=== PATIENT | male | born 1935 | race Caucasian/White ===

== ENCOUNTER 2018-09-27 20:42 | Emergency (ER) | payer OTHER ==
[~2018-09-27] VITALS: Ht 172.7 cm; Wt 63.6 kg
[2018-09-27 20:46] VITALS: Ht 172.7 cm; Wt 63.6 kg
[2018-09-27] MEDS ORDERED: ONDANSETRON 4 MG INJ IV STA (21:41)
[2018-09-27] MEDS ORDERED: SOD CHLORIDE 0.9% 1,000 ML IV STA (21:41)
--- NOTE | 2018-09-27 21:44 | ERD ---
ER Documentation Chief Complaint Chief Complaint ABDOMINAL PAIN HPI 82-year-old man complains of shaking chills about an hour prior to arrival and tactile fever, he states he has some nausea as well. Chills lasted for about 30 minutes and then resolved, he denies abdominal pain, no chest pain or shortness of breath, no cough, no sore throat, no vomiting or diarrhea, no headache or blurry vision, no complaints of neck pain or stiffness. ROS All systems reviewed and are negative except as per history of present illness. Medications Home Meds Reported Medications Cholecalciferol* (Vitamin D3*) 1,000 Unit Tablet, 1000 UNIT PO DAILY, TAB 09/27/18 Atorvastatin Calcium* (Atorvastatin Calcium*) 20 Mg Tablet, 20 MG PO QHS, #30 TAB 09/27/18 Aspirin Ec (Aspir 81) 81 Mg Tablet.dr, 81 MG PO DAILY, #30 TAB 09/27/18 Trazodone Hcl* (Trazodone Hcl*) 50 Mg Tablet, 50 MG PO QHS, #30 TAB 09/27/18 Albuterol Sulfate* (Ventolin HFA*) 18 Gm Hfa.aer.ad, 2 PUFF INHALATION Q4H, #1 INHALER 09/27/18 Allergies Allergies: Coded Allergies: No Known Allergy (Unverified , 09/27/18) PMhx/Soc History of Surgery: Yes (LUMBAR SPINE ) Anesthesia Reaction: No Hx Neurological Disorder: No Hx Respiratory Disorders: No Hx Cardiac Disorders: Yes (HTN) Hx Psychiatric Problems: No Hx Miscellaneous Medical Probl: No Hx Alcohol Use: Yes (SOCIAL) Hx Substance Use: No Hx Tobacco Use: No Smoking Status: Never smoker FmHx Family History: No diabetes Physical Exam Vitals Vital Signs Date Temp Pulse Resp B/P (MAP) Pulse Ox O2 O2 Flow FiO2 Time Delivery Rate 09/27/18 101 20 125/76 97 Room Air 23:20 (92) 09/27/18 122 20 146/80 96 Room Air 21:25 (102) 09/27/18 99.7 138 21 146/90 95 20:46 (108) Physical Exam GENERAL: Well-developed, well-nourished, well-hydrated, in no apparent distress, looks nontoxic in appearance HEENT: Moist mucous membranes, pink conjunctiva, no cervical spine tenderness or step-off deformities, no goiter, no jaundice or icterus, extraocular movements intact without pain. No submandibular induration, and no pharyngeal erythema NEURO: Alert and oriented 3, cranial nerves II through XII intact bilaterally, pupils equal round reactive to light, no focal deficits or facial asymmetry, sensation intact distally Strength 5/5 in upper and lower extremities bilaterally CARDIAC: Tachycardic and regular, no murmurs rubs or gallops LUNGS: Clear bilaterally no wheezing crackles or stridor ABDOMEN: Soft nontender, no guarding, no rigidity, no rebound, no psoas sign no obturator sign. Normoactive bowel sounds SKIN: Warm and dry to touch, no abrasions, contusions, or hematomas, no lacerations, no ecchymosis, no target lesions, and without ulcers EXTREMITIES: No clubbing cyanosis or edema, calves are bilaterally symmetrical, no Homans sign, no popliteal cord sign. Distal pulses equal and bilateral PSYCH: Normal affect without agitation or irritability Result Diagram: 09/27/18211109/27/182150 Results 24 hrs Laboratory Tests Test 09/27/18 21:12 09/27/18 21:51 09/27/18 22:30 White Blood Count 6.3 10^3/ul Red Blood Count 4.20 10^6/ul Hemoglobin 13.5 g/dl Hematocrit 38.1 % Mean Corpuscular Volume 90.7 fl Mean Corpuscular Hemoglobin 32.1 pg Mean Corpuscular 35.4 g/dl Hemoglobin Concent Red Cell Distribution Width 12.6 % Platelet Count 220 10^3/UL Mean Platelet Volume 10.1 fl Immature Granulocytes % 0.800 % Neutrophils % 93.0 % Lymphocytes % 4.6 % Monocytes % 1.1 % Eosinophils % 0.2 % Basophils % 0.3 % Nucleated Red Blood Cells % 0.0 /100WBC Immature Granulocytes # 0.050 10^3/ul Neutrophils # 5.9 10^3/ul Lymphocytes # 0.3 10^3/ul Monocytes # 0.1 10^3/ul Eosinophils # 0.0 10^3/ul Basophils # 0.0 10^3/ul Nucleated Red Blood Cells # 0.0 10^3/ul Sodium Level 141 mmol/L Potassium Level 4.0 mmol/L Chloride Level 106 mmol/L Carbon Dioxide Level 22 mmol/L Anion Gap 13 Blood Urea Nitrogen 15 mg/dl Creatinine 1.40 mg/dl Est Glomerular Filtrat mL/min Rate mL/min Glucose Level 117 mg/dl Calcium Level 9.2 mg/dl Total Bilirubin 0.8 mg/dl Direct Bilirubin 0.00 mg/dl Indirect Bilirubin 0.8 mg/dl Aspartate Amino 22 IU/L Transf (AST/SGOT) Alanine 21 IU/L Aminotransferase (ALT/SGPT) Alkaline Phosphatase 67 IU/L Troponin I < 0.012 ng/ml Total Protein 7.6 g/dl Albumin 4.2 g/dl Globulin 3.40 g/dl Albumin/Globulin Ratio 1.23 Lipase 107 U/L Urine Color YELLOW Urine Clarity CLEAR Urine pH 5.0 Urine Specific [place] 1.014 Urine Ketones NEGATIVE mg/dL Urine Nitrite NEGATIVE mg/dL Urine Bilirubin NEGATIVE mg/dL Urine Urobilinogen 1+ mg/dL Urine Leukocyte Esterase NEGATIVE Gayla/ul Urine Hemoglobin NEGATIVE mg/dL Urine Glucose NEGATIVE mg/dL Urine Total Protein NEGATIVE mg/dl Current Medications Medications Dose Sig/Iraj Start Time Status Last (Trade) Ordered Route PRN Stop Time Admin Dose Reason Admin Ibuprofen 600 mg ONCE ONCE 09/27/18 DC 09/27/18 (Motrin) PO 22:00 09/27/18 21:59 22:01 Sodium 1,000 ml @ Q1H STAT 09/27/18 DC 09/27/18 Chloride 1,000 mls/hr IV 21:41 09/27/18 22:04 22:40 Ondansetron 4 mg ONCE STAT 09/27/18 DC 09/27/18 HCl (Zofran IV 21:41 09/27/18 21:59 Inj) 21:43 Procedures/MDM IV line was established patient was placed on rewards consultant rhythm strip revealed a narrow complex tachycardia at 110 bpm with upright P and T waves. Patient was afebrile, blood and urine cultures ordered results are pending I will follow-up. EKG performed, read by me revealed a sinus tachycardia at 114 bpm, normal axis, narrow QRS complex, no concerning ST elevations or depressions noted One AP view of the chest performed, read by me reveals no acute infiltrates, normal mediastinum, sharp costophrenic and cardiac borders, no air under the diaphragm. Otherwise unremarkable chest x-ray. I administered 1 L normal saline IV, ibuprofen 600 mg p.o., Zofran 4 mg IV CBC and electrolytes were normal, liver function tests were normal, troponin was negative, urinalysis was negative for infection. CT scan of the abdomen pelvis was performed, Departure Condition: Good ULISES DELUNA MD Sep 27, 2018 21:44
[2018-09-27] MEDS ORDERED: IBUPROFEN 600 MG TAB PO ONE (22:00)
[2018-09-27] MEDS ORDERED: ATOR20TA38 PO (22:39)
[2018-09-27] MEDS ORDERED: ALBU18HF INHALATION (22:39)
[2018-09-27] MEDS ORDERED: TRAZ-111 PO (22:39)
[2018-09-27] MEDS ORDERED: ASPI-535 PO (22:39)
[2018-09-27] MEDS ORDERED: CHOL100062 PO (22:39)
[2018-09-28 01:27] VITALS: BP 122/78; PULSE 88; RESP 16
== END 2018-09-28 02:02 | disposition home or self-care (01) ==
LOC: E/R 20:42
DX: R10.9 Unspecified abdominal pain (principal); R50.9 Fever, unspecified; R11.0 Nausea; I10 Essential (primary) hypertension; Z79.82 Long term (current) use of aspirin
CPT/HCPCS: 36415; 71045; 74176; 80053; 81003; 83690; 84484; 85025; 87040; 87086; 93005; 96374; 99285; J2405; J7030